=== PATIENT | female | born 2000 | race Caucasian/White ===

== ENCOUNTER 2019-11-01 15:45 | Emergency (ER) | payer OTHER ==
[2019-11-01 16:15] LABS: Rapid Strep Molecular Negative (Negative)
[2019-11-01] MEDS ORDERED: methylPREDNISolone 125 MG* 2 ML VIAL IM ONE (16:34)
--- NOTE | 2019-11-01 16:39 | ED ---
Throat Pain/Nasal Congestion - HPI Summary HPI Summary: 19-year-old female presents to the emergency department today complaining of lightheadedness and sore throat. Patient states she has felt lightheaded for approximately one week and recently 2 days ago developed a 6 out of 10 sore throat. Patient states her pain is made worse with eating and drinking. Patient also endorses myalgia for 2 days. Patient has not taken any medication for alleviation of her symptoms. Patient denies coarse voice or trouble breathing or swallowing to suggest airway compromise. Patient denies cough, nasal congestion, shortness of breath, chest pain, abdominal pain, nausea, vomiting, diarrhea, rash. - History of Current Complaint Chief Complaint: EDSyncope Time Seen by Provider: 11/01/19 16:27 Hx Obtained From: Patient Onset/Duration: Gradual Onset, Lasting Days Associated Signs And Symptoms: Negative: Hoarseness Cough: None - Allergies/Home Medications Allergies/Adverse Reactions: Allergies Allergy/AdvReac Type Severity Reaction Status Date / Time No Known Allergies Allergy Verified 11/01/19 15:48 PMH/Surg Hx/FS Hx/Imm Hx Infectious Disease History: No Infectious Disease History: Denies: Traveled Outside the [place] in Last 30 Days - Social History Alcohol Use: None Substance Use Type: Reports: None Smoking Status (MU): Never Smoked Tobacco Review of Systems Constitutional: Negative Eyes: Negative Positive: Sore Throat. Negative: Epistaxis, Dental Pain, Ear Ache Cardiovascular: Negative Respiratory: Negative Gastrointestinal: Negative Genitourinary: Negative Positive: Myalgia. Negative: Arthralgia, Edema Skin: Negative Neurological: Negative Psychological: Normal All Other Systems Reviewed And Are Negative: Yes Physical Exam - Summary Physical Exam Summary: Inspection of the posterior pharynx reveals significant erythema and bilateral tonsillar swelling with exudate. There is no evidence of peritonsillar abscess. Uvula is midline. Triage Information Reviewed: Yes Vital Signs On Initial Exam: Initial Vitals Temp Pulse Resp BP Pulse Ox 99.6 F 110 18 136/84 96 11/01/19 15:47 11/01/19 15:47 11/01/19 15:47 11/01/19 15:47 11/01/19 15:47 Vital Signs Reviewed: Yes Appearance: Positive: Well-Appearing, No Pain Distress, Well-Nourished Skin: Positive: Warm, Skin Color Reflects Adequate Perfusion Eyes: Positive: EOMI, CHANELL ENT: Positive: Hearing grossly normal Respiratory/Lung Sounds: Positive: Clear to Auscultation, Breath Sounds Present Cardiovascular: Positive: RRR, S1, S2 Abdomen Description: Positive: Nontender, Soft Bowel Sounds: Positive: Present Musculoskeletal: Positive: Strength/ROM Intact Neurological: Positive: Sensory/Motor Intact, Alert, Oriented to Person Place, Time, Normal Gait, Speech Normal Psychiatric: Positive: Normal, Affect/Mood Appropriate AVPU Assessment: Alert Procedures - Sedation Patient Received Moderate/Deep Sedation with Procedure: No Diagnostics - Vital Signs Vital Signs Temp Pulse Resp BP Pulse Ox 11/01/19 15:47 99.6 F 110 18 136/84 96 - Laboratory Lab Results: Lab Results 11/01/19 Range/Units 15:53 Group A Strep Rapid Negative (Negative) Lab Statement: Any lab studies that have been ordered have been reviewed, and results considered in the medical decision making process. EENT Course/Dx - Course Course Of Treatment: Patient was evaluated in the emergency department today for sore throat and lightheadedness. Vital signs noted. Influenza, group A strep swab is negative. Patient likely suffering from viral pharyngitis. Patient was given steroids in the emergency department as well as prescription to take steroids as an outpatient due to level of tonsillar swelling. Patient discharged to outpatient follow-up. - Differential Diagnoses Differential Diagnoses: Influenza, Peritonsillar Ulcer, Pharyngitis, Tonsilitis - Diagnoses Provider Diagnoses: Acute pharyngitis Discharge ED - Sign-Out/Discharge Documenting (check all that apply): Patient Departure - Discharge Plan Condition: Stable Disposition: HOME Prescriptions: predniSONE 50 mg TAB [Deltasone 50 mg TAB] 50 mg PO DAILY #4 tab Patient Education Materials: Pharyngitis (ED) Referrals: [facility] [Outside] (3 days) No Primary Care Phys,NOPCP [Primary Care Provider] - Additional Instructions: You were seen in the emergency department today for sore throat. Your workup today showed you did not have strep throat and you do not have influenza. Please take prednisone 50 mg for 4 days. Please take ibuprofen 600 mg as needed every 6 hours for sore throat. Please rest and increase oral intake of fluids. Please follow-up with [facility] in 3 days for further evaluation and management of your symptoms. Please return to the emergency department immediately if you develop any new or worsening symptoms. - Billing Disposition and Condition Condition: STABLE Disposition: Home
[2019-11-01 18:13] LABS: Influenza A Molecular Negative (Negative); Influenza B Molecular Negative (Negative)
[2019-11-01 18:38] VITALS: BP 105/77
== END 2019-11-01 18:37 | disposition home or self-care (01) ==
LOC: ED 15:45
DX: J02.9 Acute pharyngitis, unspecified (principal); R42 Dizziness and giddiness; M79.10 Myalgia, unspecified site; R00.0 Tachycardia, unspecified
CPT/HCPCS: 87651; 93005; 96372; 99282; J2930